=== PATIENT | male | born 1985 | race Caucasian/White ===

== ENCOUNTER 2025-03-09 12:11 | Emergency (ER) | payer OTHER, SELFPAY ==
[2025-03-09 12:21] VITALS: BP 146/92
[2025-03-09 12:25] VITALS: BP 155/84
[2025-03-09 12:44] VITALS: BMI 32.3
[2025-03-09 13:00] VITALS: BP 106/45
[2025-03-09 13:06] LABS: % Basophils 0.5 % (0-2); % Eosinophils 0.4 % (0-6); % Immature Granulocytes 0.4 % (0-0.5); % Lymphocytes 14.4 % (20.5-51.1); % Monocytes 6.4 % (1.7-9.3); % Neutrophils 77.9 % (42.2-75.2); Absolute Lymphocytes 1.2 10^3/uL (1.2-3.4); Absolute Monocytes 0.5 10^3/uL (0.1-0.6); Absolute Neutrophils 6.4 10^3/uL (1.4-6.5); Hematocrit 44.3 % (39.0-52.0); Hemoglobin 16.1 g/dL (13.0-18.0); Mean Corp Hgb Conc. 36.3 g/dL (33.0-37.0); Mean Corpuscular Hgb 29.5 pg (27.0-31.0); Mean Corpuscular Volume 81.1 fL (80.0-94.0); Mean Platelet Volume 9.5 fL (7.4-10.4); Nucleated Red Blood Cells % 0 % (-); Platelet Count 239 10^3/uL (130-400); Red Blood Cell Count 5.46 10^6/uL (4.70-6.10); Red Cell Dist. Width 12.6 % (11.5-14.5); White Blood Cell Count 8.3 10^3/uL (4.8-10.8)
[2025-03-09 13:29] LABS: ALT (SGPT) 34 U/L (0-50); AST (SGOT) 27 U/L (17-59); Alkaline Phosphatase 118 U/L (38-126); Blood Urea Nitrogen 13 mg/dl (9-20); Calcium 9.7 mg/dl (8.4-10.2); Carbon Dioxide 23 mmol/L (22-30); Chloride 110 mmol/L (98-107); Estimated Creatinine Clearance 89 ml/min; Glucose 86 mg/dl (70-99); Potassium 4.4 mmol/L (3.5-5.1); Sodium 142 mmol/L (135-145); Total Bilirubin 0.6 mg/dl (0.2-1.3); Total Protein 7.6 g/dl (6.3-8.2); eGFR > 60.00
[2025-03-09 13:41] LABS: Troponin I < 0.012 ng/ml
[2025-03-09 14:00] VITALS: BP 125/76
--- NOTE | 2025-03-09 14:20 | ED.GENMED ---
History of Present Illness
General
Chief Complaint: Chest Pain
Time Seen by Provider: 03/09/25 14:20
History of Present Illness
History of Present Illness:
TIME OF INITIAL EVALUATION
- 2:30 PM
REVIEW OF OLD RECORDS
- The patient denies any significant past medical history
Note:
CHIEF COMPLAINT(S)
Generalized tingling sensation and chest pressure.
HISTORY OF PRESENT ILLNESS
The patient is a 39-year-old male presenting with a chief complaint of a tingling sensation that began at approximately 10:30 a.m. Initially, the sensation started around the left elbow area and disseminated throughout the patients body, reaching
the legs. The patient experienced chest pressure at around 12:00 [address] while driving to the hospital. Additionally, over the past 4 to 6 weeks, the patient reports intermittent difficulty swallowing ('feels like I cant swallow at certain times') and
episodes of breathlessness. The patient does not have a history of hypertension, hyperlipidemia, or diabetes and denies tobacco use. There is significant caffeine consumption. The patient slept well the previous night. A family history includes
diabetes in the father and paternal grandmother. Vitals and initial cardiac blood work are within normal limits.
ADDITIONAL HISTORY OBTAINED FROM SOURCES OTHER THAN THE PATIENT
Not applicable.
PHYSICAL EXAM
- General: Alert and oriented male in no acute distress.
- Cardiovascular: No tenderness on palpation of the chest.
- Gastrointestinal: No significant abdominal tenderness, though pressure is noted upon palpation without significant pain.
PLAN
Repeat cardiac blood work pending available results and account for the timing of the previous test. Continue monitoring for any changes in symptoms or signs of cardiac compromise.
DIFFERENTIAL DIAGNOSIS
The Differential Diagnosis includes, in no particular order and is not limited to:
1. Anxiety or panic disorder
2. Cardiac arrhythmia
3. Myocardial ischemia
4. Gastroesophageal reflux disease
5. Esophageal spasm
6. Hyperventilation syndrome
7. Peripheral neuropathy
8. Hypoglycemia
9. Electrolyte imbalance
10. Paresthesia secondary to cervical radiculopathy
RADIOLOGY
- Not indicated
EKG
- Sinus 99, no acute ST abnormality, no old to compare
LABS
- CBC unremarkable, chemistries and troponin unremarkable
UPDATE
- Will obtain second troponin. The patient's chest pain was at its worst almost 3 and half hours ago.
- Second troponin was obtained over 3 hours after maximal chest discomfort. He primarily described diffuse body paresthesias that originally in the left arm. Second troponin negative.
ASSESSMENT
The patient is experiencing generalized tingling sensation and chest pressure. Cardiac evaluation, including repeat cardiac blood tests, returned normal results, indicating a low likelihood of myocardial infarction. However, coronary artery disease
remains a possibility.
PLAN
Refer the patient to a credit analysis manager for further evaluation to rule out coronary artery disease. Utilize the chest pain hotline to expedite the scheduling of the cardiology appointment.
MEDICAL DECISION MAKING
1. Number & Complexity of Problems: Differential diagnoses considered include anxiety disorder and cardiac issues. Chronic conditions were not explicitly mentioned.
2. Data Reviewed: Lab results, including repeat cardiac blood tests, were reviewed and interpreted as normal.
3. Risk: Outpatient management is deemed appropriate due to reassuring work-up, stable vitals, and no significant risk factors present.
PATHOLOGIES TO CONSIDER
- Acute coronary syndrome
- Anxiety disorder
PATIENT EDUCATION AND COUNSELING
The patient was informed about the normal cardiac work-up results and the possibility of anxiety as a contributing factor. Instructions were given regarding follow-up with a credit analysis manager using the chest pain hotline for an expedited appointment.
Advised to contact healthcare providers if symptoms worsen.
Phy Exam
Physical Exam
Physical Exam:
See HPI
Scores
Heart Score for Chest Pain Patients
STEMI patient?: Not applicable
Course
Orders/Labs/Results
Orders:
Orders
03/09/25 12:22
EKG [Electrocardiogram (*1)] Urgent
Reason for Study: Chest Pain
EKG- Treatment ONCE
03/09/25 12:41
Cardiac Monitoring- Treatment ONCE
IV Insert/Care/Rem.- Treatment PRN
03/09/25 12:54
Complete Blood Count/With Diff Urgent
Comprehensive Metabolic Panel Urgent
Troponin I Urgent
03/09/25 15:35
Troponin I Urgent
Abnormal Lab Results
03/09/25
12:54
Neutrophils % 77.9 H %
(42.2-75.2)
Lymphocytes % 14.4 L %
(20.5-51.1)
Chloride 110 H mmol/L
(98-107)
03/09/25 12:54
03/09/25 12:54
Vital Signs
Initial and Last Documented VS:
Initial Vital Signs
Temp Pulse Resp BP Pulse Ox
36.8 C 104 22 146/92 100
03/09/25 12:21 03/09/25 12:21 03/09/25 12:21 03/09/25 12:21 03/09/25 12:21
Last Documented Vital Signs
Temp Pulse Resp BP Pulse Ox
36.8 C 95 14 132/82 99
03/09/25 12:25 03/09/25 15:00 03/09/25 15:00 03/09/25 15:00 03/09/25 15:39
*Pulse Oximetry
SaO2: 97
Oxygen Mode of Delivery: Room air
Patient hypoxic: no
*Deputy Fire Chief Interpretation
Rate: normal
Interpretation: normal
Heart Rate: 64
Rhythm: sinus
*Critical Care Note
Total Time (30-74mins, 75-104mins- exclusive of procedures): Not Applicable
ED Attending Note
-
Portions of this chart may have been created with voice recognition software.� Occasional wrong word or��sound alike� substitutions may have occurred due to the inherent limitations of voice recognition software.
Discharge Plan
Departure
Referrals:
Lopez Chris I., DO [Family Provider, Internal Medicine]
Interventions
Interventions:
*Risk Screen - Suicide Last Done: 03/09/25 12:25
*General Assessment Last Done: 03/09/25 12:44
*Neglect/Abuse Screening Last Done: 03/09/25 12:25
*ED- Fall Risk Assessment Last Done: 03/09/25 12:44
*ED COVID-19 Vaccine History Last Done: 03/09/25 12:44
ED- Cardiac Assessment Last Done: 03/09/25 13:01
Discharge Date and Time
Print Language: UKRAINIAN
[2025-03-09 15:00] VITALS: BP 132/82
[2025-03-09 16:00] VITALS: BP 122/75
[2025-03-09 16:06] LABS: Troponin I < 0.012 ng/ml
== END 2025-03-09 16:35 | disposition home or self-care (01) ==
LOC: EMR 12:11
PROVIDERS: EMERGENCY PHYSICIAN Emergency Medicine; FAMILY PHYSICIAN Internal Medicine
DX: R07.89 Other chest pain (principal)
CPT/HCPCS: 99284; 80053; 84484; 85025; 93005

== ENCOUNTER → 2025-03-14 11:00 | Outpatient (REF) | payer OTHER, SELFPAY | LOC: RAD 11:00 | PROVIDERS: ATTENDING PHYSICIAN Internal Medicine | DX: R05.1 Acute cough (principal); K21.9 Gastro-esophageal reflux disease without esophagitis; R00.2 Palpitations | CPT/HCPCS: 71046 ==

== ENCOUNTER → 2025-03-26 08:35 | Outpatient (REF) | payer OTHER, SELFPAY | LOC: RST 08:35 | PROVIDERS: ATTENDING PHYSICIAN Nurse Practitioner Family | DX: R13.10 Dysphagia, unspecified (principal) | CPT/HCPCS: 74230; 92611 ==